=== PATIENT | male | born 1945 | race Caucasian/White ===

== ENCOUNTER 2019-03-20 12:37 | Emergency (ER) | payer OTHER, MEDICARE, SELFPAY ==
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
[2019-03-20] MEDS: ACETAMINOPHEN 325 MG TABLET 650 MG PO (14:27)
[2019-03-20 14:33] VITALS: BP 148/80; PULSE 89; RESP 18; O2SAT 98
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
[2019-03-20 15:30] VITALS: BP 124/61; PULSE 88; RESP 19; O2SAT 93
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
[2019-03-20] MEDS: BACITRACIN OINT 0.9 GM PCKT 1 APPLIC TOP (15:34)
== END 2019-03-20 16:44 | disposition home or self-care (01) ==
PROVIDERS: Emergency Provider Nurse Practitioner Family
DX: S09.90XA Unspecified injury of head, initial encounter (principal); S40.022A Contusion of left upper arm, initial encounter; M25.512 Pain in left shoulder; M25.562 Pain in left knee; S29.9XXA Unspecified injury of thorax, initial encounter; Z79.82 Long term (current) use of aspirin; V87.7XXA Person injured in collision between other specified motor vehicles (traffic), initial encounter
CPT/HCPCS: 70450; 71046; 73030; 73090; 73562; 99284

== ENCOUNTER 2020-03-03 15:39 | Emergency (ER) | payer MEDICARE, SELFPAY ==
[2020-03-03 15:45] VITALS: BP 176/84; PULSE 88; RESP 16; TEMP 36.7; O2SAT 99; BMI 27.0
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
--- NOTE | 2020-03-03 18:23 | PC.NURSE ---
states he knows his tetanus is up to date. [facility] and they keep up on all of his vaccinations very well.
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
[2020-03-03 18:41] VITALS: BP 201/88; PULSE 100; O2SAT 97
--- NOTE | 2020-03-03 19:49 | ED.WOUNDLAC ---
HPI - Wound/Laceration General Chief Complaint: Wound/Laceration Stated Complaint: head injury Time Seen by Provider: 03/03/20 18:10 Source: patient Mode of arrival: Ambulatory Limitations: no limitations History of Present Illness HPI narrative: Earlier today, patient was at home, he walked around the corner of his mobile home. The mobile has a tip out. He ran of the tip all, striking his head against the corner. He sustained a laceration to the vertex of his scalp. He has had persistent bleeding. He has no dizziness, visual changes, or confusion. He had no LOC. His no associated neck pain. His no peripheral numbness or weakness. He denies confusion. He is not anticoagulated. Related Data Allergies Allergy/AdvReac Type Severity Reaction Status Date / Time No Known Drug Allergies Allergy Verified 03/20/19 12:46 Review of Systems Constitutional Constitutional: Denies fever(s), Reports headache(s), Denies lethargy and Denies weakness Eyes Eyes: Denies change in vision ENT Ears, Nose, Mouth, and Throat: Reports headache(s) Comments: No bleeding from the nose or ears. Musculoskeletal Comments: No focal numbness or weakness. Neurologic Neurologic: Reports headache(s) and Denies weakness Hematologic/Lymphatic On Anticoagulants: No Patient History Medical History Arthritis Colon cancer Hyperlipidemia Hypertension Surgical History History of hernia surgery Social History Smoking Status: Former smoker Smoking Status: Former smoker Substance Use Type: does not use Exam Initial Vital Signs Initial Vital Signs: Vital Signs Temperature 98.0 F 03/03/20 15:45 Pulse Rate 88 03/03/20 15:45 Respiratory Rate 16 03/03/20 15:45 Blood Pressure 176/84 H 03/03/20 15:45 Pulse Oximetry 99 03/03/20 15:45 Const General: cooperative and well developed Nutritional Appearance: well nourished [facility] Head: other (3 cm laceration to the vertex of his scalp. No palpable step-offs.) Ears: TM's normal bilaterally Nose: external nose normal and nares normal Face and sinus: normal facial exam Mouth: oral mucosae normal Eyes General: appearance normal, both eyes and all related structures Eyelids: eyelids normal Conjunctivae: conjunctivae normal Sclera: sclerae normal Pupils: PERRL EOM: EOM intact bilaterally Neck Neck: normal visual inspection, trachea midline, No lymphadenopathy and No midline deformity Lymphatic: No lymphedema Skin General: no rashes or lesions noted and No petechiae Neuro General: patient alert, patient oriented x3, gait normal and no focal motor deficits Speech: speech normal Procedures Laceration Repair Laceration 1: Site: scalp Size (cm): 3 Description: linear and clean Depth: simple, single layer Pre-repair: wound explored, irrigated extensively and deep structures intact Skin layer closed with: dermabond Course Course Course Narrative: Head CT is normal. Wound was cleaned extensively by his nurse prior to closure. He was closed with Dermabond without incident. Orders Ordered: ED Orders 03/03/20 17:27 CT head/brain wo con Stat Vital Signs Vital signs: Vital Signs - 8 hr 03/03/20 20:00 Temperature 97.8 F Pulse Rate 97 H Respiratory Rate 16 Blood Pressure 199/92 H Pulse Oximetry 97 MDM - Wound/Laceration Imaging Data CT scan - head: Radiologist's Impression: Normal study. Discharge Plan Departure Patient Disposition: Home Clinical Impression: Laceration of scalp Qualifiers: Encounter type: initial encounter Qualified Code(s): S01.01XA - Laceration without foreign body of scalp, initial encounter Instructions: DI for Minor Laceration Activity Restrictions/Additional Instructions: Keep the site dry for 1 day. Tomorrow evenig you are okay to shower. The glue will start falling apart in 5-7 days. When this happens simply remove the glue. Return here as necessary.
[2020-03-03 20:00] VITALS: BP 199/92; PULSE 97; RESP 16; TEMP 36.6; O2SAT 97
== END 2020-03-03 19:58 | disposition home or self-care (01) ==
PROVIDERS: Emergency Provider Emergency Medicine
DX: S01.01XA Laceration without foreign body of scalp, initial encounter (principal); E78.5 Hyperlipidemia, unspecified; I10 Essential (primary) hypertension; W22.8XXA Striking against or struck by other objects, initial encounter
CPT/HCPCS: 70450; 99283; 99284